=== PATIENT | female | born 1980 | race Caucasian/White ===

== ENCOUNTER 2018-07-27 08:51 | Emergency (ER) | payer OTHER ==
--- NOTE | 2018-07-27 09:09 | EDPHY ---
H & P Time Seen by Provider: 07/27/18 09:08 HPI/ROS: Chief complaint. Calf pain, hip surgery in May HPI. Patient 38-year-old female who had labrum surgery and shaving head of the femur in May. Surgery was on the left hip. Last week she was finally cleared to be off crutches and has been increasing her ambulation. She has had 2 days of left calf pain especially with walking but somewhat all the time. This morning her calf felt hot. Maybe slight swelling. Seen by physical therapist this morning and referred to ED for evaluation of calf pain. She no discomfort above the knee inner thigh. She has no shortness of breath or chest discomfort. She has no history of DVT ROS 10 systems were reviewed and negative with the exception of the elements mentioned in the history of present illness Past Medical/Surgical History: Past medical history is significant for if surgery, lumpectomy Social History: , nonsmoker, no alcohol Smoking Status: Never smoked Physical Exam: General Appearance: Alert pleasant well-developed female mild distress vital signs are stable Eyes: Pupils equal and round no pallor or injection. ENT, Mouth: Mucous membranes are moist. Respiratory: There are no retractions, lungs are clear to auscultation. Cardiovascular: Regular rate and rhythm. Gastrointestinal: Abdomen is soft and nontender, no masses, bowel sounds normal. Neurological: Awake and alert, sensory and motor exams grossly normal. Skin: Warm and dry, no rashes. Musculoskeletal: Neck is supple nontender. Extremities tenderness in the posterior left calf. Slight swelling. No tenderness or symptoms in the medial thigh. Psychiatric: Patient is oriented X 3, there is no agitation. Constitutional: Initial Vital Signs Temperature (C) 36.5 C 07/27/18 08:54 Heart Rate 96 07/27/18 08:54 Respiratory Rate 18 07/27/18 08:54 Blood Pressure 164/106 H 07/27/18 08:54 O2 Sat (%) 96 07/27/18 08:54 O2 Delivery Mode Room Air Allergies/Adverse Reactions: Penicillins Allergy (Verified 07/27/18 09:01) Home Medications: Medication Instructions Recorded Apixaban [Eliquis 30-day Starter 1 kit PO AD #1 kit 07/27/18 Pack] Apixaban [Eliquis] 10 mg PO BID #14 tab 07/27/18 Diazepam 07/27/18 Medical Decision Making - Diagnostics Imaging Results: Imaging Impressions Extremity Venous Study 07/27/18 09:20 Impression: Positive deep venous thrombosis involving the left popliteal and calf veins. Findings and recommendations discussed with Emergency Department physician, VITOR CORTEZ at 10:00 hour, 07/27/2018. Final report concurs with initial preliminary interpretation. Ultrasound of the left lower extremity reviewed by me and discussed with Radiology shows left popliteal and calf vein DVT ED Course/Re-evaluation: Re-evaluation 10:20 a.m.. Patient and I discussed imaging study results, treatment plan including criteria for return importance of follow-up and further evaluation. She expresses understanding andagreement Patient would prefer to use Eliquis after discussion about director oral anticoagulants verses Coumadin. Patient is given 1st dose of Eliquis in the emergency department Labs are drawn and patient has normal renal function Differential Diagnosis: I considered DVT, calf strain. No evidence for pulmonary embolus - Data Points Laboratory Results: Laboratory Results 07/27/18 10:45 07/27/18 10:45 07/27/18 07/27/18 07/27/18 10:45 10:45 10:45 WBC 14.57 10^3/uL H 10^3/uL (3.80-9.50) RBC 4.47 10^6/uL 10^6/uL (4.18-5.33) Hgb 14.4 g/dL g/dL (12.6-16.3) Hct 42.2 % % (38.0-47.0) MCV 94.4 fL fL (81.5-99.8) MCH 32.2 pg pg (27.9-34.1) MCHC 34.1 g/dL g/dL (32.4-36.7) RDW 12.4 % % (11.5-15.2) Plt Count 222 10^3/uL 10^3/uL (150-400) MPV 9.9 fL fL (8.7-11.7) Neut % (Auto) Pending Lymph % (Auto) Pending Parmer % (Auto) Pending Eos % (Auto) Pending Baso % (Auto) Pending Nucleat RBC Rel Count Pending Absolute Neuts (auto) Pending Absolute Lymphs (auto) Pending Absolute Monos (auto) Pending Absolute Eos (auto) Pending Absolute Basos (auto) Pending Absolute Nucleated RBC Pending Immature Gran % Pending Immature Gran # Pending Platelet Estimate Pending PT 13.2 SEC SEC (12.0-15.0) INR 0.98 (0.83-1.16) APTT 24.6 SEC SEC (23.0-38.0) Sodium 140 mEq/L mEq/L (135-145) Potassium 4.0 mEq/L mEq/L (3.3-5.0) Chloride 110 mEq/L mEq/L (97-110) Carbon Dioxide 23 mEq/l mEq/l (22-31) Anion Gap 7 mEq/L mEq/L (6-14) BUN 12 mg/dL mg/dL (7-23) Creatinine 0.7 mg/dL mg/dL (0.6-1.0) Estimated GFR > 60 Glucose 82 mg/dL mg/dL (70-100) Calcium 8.8 mg/dL mg/dL (8.5-10.4) Medications Given: Discontinued Medications Acetaminophen (Tylenol) 1,000 mg PO EDNOW ONE Stop: 07/27/18 10:43 Last Admin: 07/27/18 11:10 Dose: 1,000 mg Apixaban (Eliquis) 10 mg PO EDNOW ONE Stop: 07/27/18 10:43 Last Admin: 07/27/18 11:10 Dose: 10 mg Sodium Chloride (Ns) 1,000 mls @ 0 mls/hr IV EDNOW ONE; Wide Open PRN Reason: Protocol Stop: 07/27/18 10:25 Last Admin: 07/27/18 10:30 Dose: Not Given Departure - Departure Disposition: Home, Routine, Self-Care Clinical Impression: DVT (deep venous thrombosis) Qualifiers: DVT location: lower extremity Affected thrombotic vein of extremity: popliteal Chronicity: acute Laterality: left Qualified Code(s): I82.432 - Acute embolism and thrombosis of left popliteal vein Condition: Good Instructions: Deep Vein Thrombosis (ED) Additional Instructions: Easy activity next 3 days. No physical therapy. Crutch ambulation. Try to keep your left leg elevated when at rest to minimize swelling Tylenol 650 mg every 4-6 hours as needed for discomfort The dose of Eliquis is 10 mg twice daily for 7 days then 5 mg twice daily Follow up with your regular healthcare provider on or Thursday before you travel this weekend Return for chest discomfort or trouble breathing. Referrals: EDWARD BRITTON [Other] - 2-3 days without fail Prescriptions: Apixaban [Eliquis 30-day Starter Pack] 1 kit PO AD #1 kit Apixaban [Eliquis] 10 mg PO BID #14 tab
[2018-07-27] MEDS ORDERED: NS 1,000 ML IV ONE (10:24)
[2018-07-27] MEDS ORDERED: ACETAMINOPHEN 500 MG TAB PO ONE (10:42)
[2018-07-27] MEDS ORDERED: APIXABAN 5 MG TAB PO ONE (10:42)
[2018-07-27 11:02] LABS: PLATELET COUNT 222 10^3/uL (150-400)
[2018-07-27 11:10] LABS: INR 0.98 (0.83-1.16); PROTIME(PATIENT) 13.2 SEC (12.0-15.0)
[2018-07-27 11:45] VITALS: BP 133/103
== END 2018-07-27 11:51 | disposition home or self-care (01) ==
DX: I82.432 Acute embolism and thrombosis of left popliteal vein (principal); I82.442 Acute embolism and thrombosis of left tibial vein; I82.492 Acute embolism and thrombosis of other specified deep vein of left lower extremity

== ENCOUNTER 2019-02-07 11:29 | Day surgery (SDC) | payer OTHER | END 2019-02-07 19:38 | disposition home or self-care (01) | LOC: FSGY 19:38 ==